=== PATIENT | male | born 1990 ===

== ENCOUNTER 2016-07-17 07:11 | Inpatient (IN) ==
[2016-07-17] MEDS ORDERED: ONDANSETRON 4 MG/2 ML VIAL IV STA (07:40)
[2016-07-17] MEDS ORDERED: SODIUM CHLORIDE 0.9% 1,000 ML IV STA (07:40)
[2016-07-17] MEDS ORDERED: HYDROmorphone 2 MG/1 ML VIAL IV STA (07:40)
[2016-07-17] MEDS ORDERED: ONDANSETRON 4 MG/2 ML VIAL ONE ×2 (07:46→10:47)
[2016-07-17] MEDS ORDERED: HYDROmorphone 2 MG/1 ML VIAL ONE (07:47)
--- NOTE | 2016-07-17 08:00 | XRay Report ---
XR chest 1V portable Indication: Abdominal pain Comparison: None available Findings: The heart and mediastinum are normal in size and configuration. The pulmonary vascularity is normal in caliber. No lung infiltrates, effusions, pneumothorax or other abnormality is demonstrated. Impression: Normal chest x-ray PROCEDURE INTERPRETED AT [facility] DEPARTMENT OF RADIOLOGY Final Report Signed by: Dr. Bartolo Taylor
--- NOTE | 2016-07-17 08:19 | Emergency Department Note ---
Gloria Machuca Gwan, am scribing for, and in the presence of, Randolph Tabor MD 07:51 . Sharona Machuca James D, MD, personally performed the services described in this documentation, ascribed by Jin Castro in my presence, and it is both accurate and complete . Arrival - Arrival Stated Complaint: abdominal pain Mode of Arrival: Stretcher Limitations: No Limitations Source: Patient, Old Records Reviewed, RN Notes Reviewed - History of Present Illness HPI Narrative: Pt is a 26 y/o male, with a hx of Pancreatitis, who presents to the ED via EMS from [facility] with a c/o N/V with an onset this morning. Patient stated that upon onset, he has had constant vomiting. He describes his pain as burning and that it radiates to his back. Patient denies a SHX of ETOH use or any hx of DM. During exam, pt stated that is is in pain now and that he last vomited right before exam. No other problems/complaints reported in ED. Onset (ago): hour(s) Consistency: constant Severity: moderate Allergies/Adverse Reactions: Allergies Allergy/AdvReac Type Severity Reaction Status Date / Time No Known Allergies Allergy Verified 07/17/16 07:27 Home Medications: Home Medications Medication Instructions Recorded Confirmed Type No Known Home Medications [No 07/17/16 07/17/16 History Known Home Medications] Review of System - Review of System 12 point system: reviewed and no additional remarkable complaints except as stated - Review of System Constitutional: Absent: chills, fever Eyes: Absent: discharge, pain Head/Ears/Nose/Throat: Absent: earache Cardiovascular: Absent: chest pain Gastrointestinal: Present: as per HPI, abdominal pain Genitourinary male: Absent: dysuria Musculoskeletal: Absent: arm pain, back pain, leg pain, neck pain Skin: Absent: rash, lesions Neurological: Absent: headache, weakness Exam Physical Examination: GENERAL: This is a morbidly obese [place] male in no apparent distress. VITAL SIGNS: HEENT: Head is normocephalic and atraumatic. Pupils are equally round and reactive to light. Extraocular movement are intact. Oropharynx is benign with moist mucous membranes. Exophthalmos present. NECK: Neck is soft and supple without tenderness. There are no masses. There is no lymphadenopathy. LUNGS: Lungs are clear to auscultation bilaterally. Chest rises symmetrically. There is no chest wall tenderness. CV: Heart is regular rate and rhythm without murmurs, rubs, or gallops. ABDOMEN: Abdomen is soft, tender to palpation epigastric area. There are no abnormal masses palpated. There is no organomegaly. Bowel sounds are present and active. SKIN: Skin is warm and dry. No rash. EXTREMITIES: Patient has full range of motion without tenderness. There is no pedal edema. NEUROLOGIC: Awake, alert, and oriented x4. Cranial nerves II through XII are grossly intact. There are no motorsensory deficits. PSYCHIATRIC: Normal affect. Normal mood. tender epigastric exofthoumas morbid obesity Vital Signs: Vital Signs Temperature 97.5 F L 07/17/16 07:11 Pulse Rate 96 H 07/17/16 07:11 Respiratory Rate 20 07/17/16 07:11 Blood Pressure 148/89 07/17/16 07:11 O2 Sat by Pulse Oximetry 98 07/17/16 07:11 Course Course Narrative: Discussed with hospitalist pt will be admitted to their services. Time now is 0745. Results - Labs Lab Results: I have reviewed the patients labs - EKG EKG results: interpreted by ERMD - Impressions EKG: Sinus tachycardia with a rate of 107, nonspecific ST-T wave changes, left axis deviation. Disposition Clinical Impression: Pancreatitis Case discussed with: patient Disposition: Still a Patient Time of Disposition: 08:19
[2016-07-17] MEDS ORDERED: GLUCAGON 1 MG VIAL IM PRN (08:31)
[2016-07-17] MEDS ORDERED: ONDANSETRON 4 MG/2 ML VIAL IV PRN (08:31)
[2016-07-17] MEDS ORDERED: DEXTROSE 50% 25 GM/50 ML VIAL IV PRN (08:31)
--- NOTE | 2016-07-17 08:43 | Ultrasound Report ---
Abdominal ultrasound Indication: Abdominal Pain Findings: The liver is normal in size and echogenicity. The gallbladder is fluid-filled without evidence of stones or sludge. The gallbladder wall thickness is 1.8 mm. The common bile duct measures 5.2 mm. The visualized portion of the pancreas appear within normal limits The kidneys normal in size and echogenicity without hydronephrosis or other abnormality. The right renal length is 7.8 cm. Left renal length is 9.7 cm. Spleen, aorta and IVC appear within normal limits. No free fluid or free air seen. Impression: No evidence of abnormality demonstrated. Ultrasound images stored and captured. PROCEDURE INTERPRETED AT [facility] DEPARTMENT OF RADIOLOGY Final Report Signed by: Dr. Bartolo Taylor
--- NOTE | 2016-07-17 08:46 | CT Report ---
CT abdomen pelvis Indication: Pancreatitis Comparison: None available Technique: Axial CT imaging of the abdomen and pelvis is performed without contrast. Findings: Cardiac and lung bases are within normal limits CT abdomen: There is stranding seen diffusely around the pancreas. No focal pancreatic lesion is identified. A multiple calculi are seen within the gallbladder. Small amount of fluid is present in the right paracolic gutter. The liver spleen and adrenal glands are normal in size and density. No evidence of focal lesion is demonstrated in these solid organs. Kidneys are normal in size and density. No evidence of hydronephrosis or nephrolithiasis is seen. The bowel caliber is normal and no wall thickening or adjacent inflammatory change is seen. No evidence of free fluid or free air is present. CT pelvis: The bowel and bladder appear within normal limits. The pelvic organs show no evidence of abnormality Impression: Findings of pancreatitis as described above. This CT exam was performed using one or more the following dose reduction techniques: Automated exposure control, adjustment of the MA and/or KV according to patient size, or use of iterative reconstruction technique. PROCEDURE INTERPRETED AT [facility] DEPARTMENT OF RADIOLOGY Final Report Signed by: Dr. Bartolo Taylor
--- NOTE | 2016-07-17 08:48 | EKG Report ---
Stationary ECG Study [facility] ER Test Date: 07/17/2016 8:39:50 AM Pat Name: ADELINA CANALES Department: Room: Gender: M Mortgage Consultant: ANN : 1990 Requested by: Randolph Griffin Order Number: [id number] Reading MD: SIMON MITCHELL Intervals [place] Rate: 107 P: 7 AK: 132 QRS: -36 QRSD: 105 T: 21 QT: 330 QTc: 393 Interpretive Statements SINUS TACHYCARDIA LEFT AXIS DEVIATION DELAYED ANTERIOR R WAVE PROGRESSION INDICATING POSSIBLE ANTERIOR MYOCARDIAL INFARCTION BUT MAY BE A NORMAL VARIANT Electronically Signed On 07-22-16 11:07:20 CDT by SIMON MITCHELL [email or web address]
--- NOTE | 2016-07-17 08:48 | Hospitalist History & Physical ---
Assessment and Plan - Time spent with patient Time spent with patient: Greater than 30 minutes (1) Elevated LFTs Status: Acute Assessment and plan: 26-year-old obese male transferred from [facility] with further evaluation for pancreatitis. Patient has elevated LFTs, elevated lipase and elevated white count. Patient is afebrile vital signs are stable at this time. He does have hypertension and blood sugars over 200 so most likely has undiagnosed diabetes and hypertension as well. Patient's ultrasound and CT scan are pending at this time. Patient does not drink alcohol. Case has been discussed with Dr. Juárez the ED physician and Dr. Lowery. Further recommendations to follow. Pancreatitis with elevated LFTs--ultrasound and CT scan are pending. This most likely represents cholelithiasis and possible choledocholithiasis pending ultrasound and CT results. We will go ahead and get GI consulted for possible ERCP. Patient has been made n.p.o. and IV fluids started at 200 mils per hour. We will control his pain and nausea And monitor his symptoms. If the pancreatitis is from cholelithiasis we will also consult surgery. Will await results of CT and ultrasound. Undiagnosed diabetes--we will go ahead and get sliding scale insulin and blood glucoses before meals and at bedtime. Checking a hemoglobin A1c as well. Undiagnosed hypertension--we will monitor his blood pressures at this time. Lopressor as needed has been ordered. Hypertension could possibly be from pain so we will control his pain as well. Graves' disease with exophthalmos--checking thyroid function tests. (2) Diabetes Status: Acute (3) Hypertension Status: Acute (4) Graves' disease with exophthalmos Status: Acute (5) Pancreatitis Status: Acute History of Present Illness Chief complaint: Abdominal pain History of present illness: Mr. Casanova is a 26 year old obese male w no reported medical history transferred by ambulance from [facility] for further evaluation of pancreatitis. pt states he was in his normal state of health until late last night when he thought he had to have a BM. he had acute onset of severe abdominal pain w nausea and constant vomiting. he states the pain felt like something was "trying to claw its way out of me" and then it started radiating through to his back. pt denies headache, blurred vision, dysphagia, chest pain, sob, diarrhea or constipation, or LE edema. pt denies alcohol or smoking. pt's records from [facility] state pt has dx of Grave's disease but pt states he didnt know. his BP are elevated and his BS are over 200. pts PSH includes debridement from spider bite and eye surgery when he was younger. records from [facility] show elevated LFTs [place] [address]. pt is afeb and VSS other than hypertension. US and CTA/P have been ordered in ED and are pending. pts case was discussed w dr juárez the ED physician and dr lowery the admitting hospitalist and it was agreed pt needs to be admitted for further evaluation and treatment. Home Medications Medication Instructions Recorded Confirmed Type No Known Home Medications [No 07/17/16 07/17/16 History Known Home Medications] Allergies Allergy/AdvReac Type Severity Reaction Status Date / Time No Known Allergies Allergy Verified 07/17/16 07:27 Medical,Surgical,& Family Hx - Medical History Cardio: History of: Hypertension Endocrine: History of: Diabetes Mellitus (IDDM), Thyroid Disorder (Graves disease) Respiratory: History of: Obstructive Sleep Apnea - Surgical History HEENT Surgeries: Surgical HX of: Eye Surgery Orthopedic Surgeries: Surgical HX of;: Orthopedic Surgery - Family History Family History: Reports;: Family Heart Disease - Social History Smoking Status: Never smoker Frequency of Alcohol Use: None Type of Drug Use: None Marital Status: Single Functional capacity: independent ambulation Review of systems: Complete 10 system review of systems was obtained and pertinent negatives and positives are per HPI Exam - Constitutional Vitals: Period Temp Pulse Resp BP Sys/Chong Pulse Ox Last 24 Hr 97.5 F 96 20 148/89 98 Exam: Constitutional System: No distress. No tremulousness. Head: Normocephalic, atraumatic. Ears, Nose and Throat System: No evidence of Otitis or Mastoiditis. No epistaxis or discharge Eyes System: Pupils equal, round, and reactive. Extraocular muscles intact. Exophthalmus with bloodshot sclera Neck: Supple, without adenopathy, No jugular venous distention. No thyromegaly, neck mass, or prior surgery apparent. Respiratory System: Chest clear to auscultation. Cardiovascular System: Heart with regular rate and rhythm. No murmur. GI System: Abdomen soft, obese tender to palpation in both upper quadrants and epigastrium. Normo active bowel sounds present. No peritoneal signs Musculoskeletal System: limbs with mild pedal edema. Full distal pulses. Patient has excoriations on bilateral lower legs Neurological System: No discernable sensory deficit. No aphasia Psychiatric System: Conversation is rational Results - Labs Lab Results: I have reviewed the past 24 hour labs (Lipase greater than 12,000, elevated LFTs, white blood cell count 16.9 from [facility] records) - Diagnostic Findings Procedure: Chest x-ray: report reviewed by me (normal), CT Abdomen and Pelvis: pending, Ultrasound: pending
[2016-07-17] MEDS ORDERED: METOPROLOL TARTRATE 5 MG/5 ML VIAL IV PRN (08:53)
[2016-07-17 08:55] LABS: Basophils % 0.1 % (0.0-0.8); Eosinophils % 0.1 % (0.00-10.9); Hematocrit 45.8 VOL% (42.0-52.0); Hemoglobin 15.5 GM/DL (14.0-18.0); Immature Granulocytes % 0.4 %; Immature Granulocytes Absolute 0.07 #; Lymphocytes # 0.9 10*3/uL (1.4-4.0); Lymphocytes % 5.3 % (21.2-54.2); Mean Corpuscular HGB Conc 33.8 GM/DL (32-36); Mean Corpuscular Hemoglobin 29 PG (27-34); Mean Corpuscular Volume 85.8 FL (87-102); Mean Platelet Volume 10.6 FL (9.6-12.0); Monocytes # 0.6 10*3/uL (0.11-0.8); Monocytes % 3.6 % (1.7-12.7); Neutrophils # 15.8 10*3/uL (1.4-7.4); Neutrophils % 90.5 % (38.7-73.9); Platelet Count 254 T/CUMM (130-400); Red Blood Count 5.34 MC/CUMM (3.8-5.5); Red Cell Distribution Width 12.7 % (9.3-17.3); White Blood Count 17.4 T/CUMM (4-12)
[2016-07-17 09:04] LABS: PT Patient Result 10.3 SECS
[2016-07-17 09:32] LABS: Albumin 3.2 G/DL (3.4-5.0); Bilirubin,Total 0.6 MG/DL (0.2-1.0); Calcium 8.5 MG/DL (8.5-10.1); Osmolality,Calculated 286.1 MOS/KG (273-304); Potassium 3.9 MMOL/L (3.5-5.1); Total Protein 7.3 G/DL (6.4-8.3)
[2016-07-17 09:40] LABS: Free T4 (Free Thyroxine) 1.47 NG/DL (0.76-1.46); Thyroid Stimulating Hormone < 0.005 uIU/ml (0.358-3.74); Triglycerides 209 MG/DL (2-150)
[2016-07-17] MEDS: ONDANSETRON 4 MG/2 ML VIAL IV PRN ×2 (10:49→22:11)
[2016-07-17] MEDS: SODIUM CHLORIDE 0.9% 1,000 ML IV SCH ×3 (11:44→18:03)
[2016-07-17] MEDS: metroNIDAZOLE INJ 500 MG in PREMIX 1 EACH IV SCH ×2 (12:10→17:22)
[2016-07-17] MEDS: PANTOPRAZOLE 40 MG VIAL IV SCH (12:10)
--- NOTE | 2016-07-17 13:34 | Gastrointestinal Consult Note ---
<Jailene Damico - Last Filed: 07/17/16 13:30> Assessment and Plan (1) Pancreatitis Status: Acute Assessment and plan: 07/17-Sudden onset of nausea and vomiting with abdominal pain radiating to back. CT and US findings noted as below. Lipase 9380, elevated transaminases. Continue NPO with ice chips only. Continue to monitor at this time and recheck LFTS and lipase tomorrow. Will reevaluate tomorrow. Plan and addendum to follow by Dr Houston. Current Visit: Yes History of Present Illness Chief complaint: Abdominal pain, elevated LFTs History of present illness: Mr. Casanova is a 26 year old male who was transferred from [facility] following onset of abdominal pain. Patient states that he was in his usual state of health until yesterday when he had a sudden onset of severe abdominal pain in his upper abdomen that was associated with intractable nausea and vomiting. Patient states the pain was severe in nature and radiated through to his back. He states he has never had pain like this in the past. Patient denies any coffee-ground or hematemesis with the vomiting. Denies any fever or chills. He denies any history of smoking or alcohol use now or in the past. He does have a history of Graves' disease according to his records from [facility] but he is not aware of this per patient. Denies family history of gallbladder disease. He was found prior to arrival to have a lipase greater than 12,000 and elevated LFTs. He was transferred to our facility for further evaluation. On admission he had a CT scan which showed diffuse stranding around the pancreas with no lesion identified as well as multiple calculi in the gallbladder and paracolic gutter fluid the liver and spleen are unremarkable without focal lesions. Abdominal ultrasound showed fluid-filled gallbladder without evidence of stones or sludge with the common bile duct at 5.2 mm. He was found to have leukocytosis with WBCs at 17,000. Lipase 9380, AST 215, ALT 320, Alk phos 210. Home Medications Medication Instructions Recorded Confirmed Type No Known Home Medications [No 07/17/16 07/17/16 History Known Home Medications] Allergies Allergy/AdvReac Type Severity Reaction Status Date / Time No Known Allergies Allergy Verified 07/17/16 07:27 Medical,Surgical,& Family Hx - Medical History Cardio: History of: Hypertension Endocrine: History of: Diabetes Mellitus (IDDM), Thyroid Disorder (Graves disease) Respiratory: History of: Obstructive Sleep Apnea - Surgical History HEENT Surgeries: Surgical HX of: Eye Surgery Orthopedic Surgeries: Surgical HX of;: Orthopedic Surgery - Family History Family History: Reports;: Family Heart Disease - Social History Smoking Status: Never smoker Frequency of Alcohol Use: None Type of Drug Use: None 12 point system: reviewed and no additional remarkable complaints except as stated - Constitutional Constitutional: Present: as per HPI - EENT Eyes: Present: as per HPI Ears: Present: as per HPI Nose, mouth and throat: Present: as per HPI - Cardiovascular Cardiovascular: Present: as per HPI - Respiratory Respiratory: Present: as per HPI - Gastrointestinal Gastrointestinal: Present: as per HPI, abdominal pain, nausea, vomiting - Genitourinary Genitourinary: Present: as per HPI - Musculoskeletal Musculoskeletal: Present: as per HPI - Neurological Neurological: Present: as per HPI - Psychiatric Psychiatric: Present: as per HPI - Endocrine Endocrine: Present: as per HPI - Hematologic/Lymphatic Hematologic/Lymphatic: Present: as per HPI Exam - Constitutional Vitals: Period Temp Pulse Resp BP Sys/Chong Pulse Ox Last 24 Hr 98.8 F-98.8 F 102-111 18-20 138-169/93-102 95-97 General appearance: no acute distress, morbidly obese - Head Head exam: Present: normal inspection, normocephalic - Eye Eye exam: Present: other (lids and conjunctiva unremarakble). Absent: scleral icterus - ENT ENT exam: Present: normal exam, normal oropharynx - Neck Neck exam: Present: normal inspection, meningismus - Respiratory Respiratory exam: Present: clear to auscultation bilaterally. Absent: rales, rhonchi, wheezes - Cardiovascular Cardiovascular exam: Present: regular rate and rhythm. Absent: diastolic murmur , JVD, systolic murmur - GI/Abdominal GI/Abdominal exam: Present: normal bowel sounds, tenderness, soft. Absent: ascites, distended, mass, organomegaly - Extremities Exam Extremities exam: Present: normal inspection, full ROM - Back Exam Back exam: Present: normal inspection - Neurological Exam Neurological exam: Present: alert, oriented X3 - Psychiatric Psychiatric exam: Present: normal affect, normal mood - Skin Skin exam: Present: normal color, warm, dry Results - Labs CBC & BMP: 07/17/16 08:46 07/17/16 08:46 Lab Results: I have reviewed the past 24 hour labs - Diagnostic Findings Procedure: CT Abdomen and Pelvis: report reviewed by me, Ultrasound: report reviewed by me <Shailesh Houston - Last Filed: 07/17/16 18:12> History of Present Illness History of present illness: Mr. Casanova is a 26 year old male Exam - Constitutional Vitals: Period Temp Pulse Resp BP Sys/Chong Pulse Ox Last 24 Hr 97.9 F-98.8 F 102-111 18-20 134-169/83-102 95-97 Results - Labs CBC & BMP: 07/17/16 08:46 07/17/16 08:46
[2016-07-17] MEDS: HYDROmorphone 2 MG/1 ML VIAL IV PRN ×2 (13:38→22:10)
[2016-07-17] MEDS: PIPERACILLIN/TAZOBACTAM 3,375 MG in SODIUM CHLORIDE 0.9% 100 ML IV SCH ×2 (13:38→21:33)
[2016-07-17] MEDS ORDERED: POLYVINYL ALCOHOL 1.4% OPH SOLN 15 ML BOTTLE BOTH EYES PRN (15:28)
[2016-07-17] MEDS: INSULIN LISPRO 100 UNIT/ML SUBCUT SCH ×2 (15:52→21:26)
[2016-07-17] MEDS ORDERED: INSULIN LISPRO 100 UNIT/ML SUBCUT SCH (17:00)
[2016-07-17] MEDS: MINERAL OIL/PETROLATUM OPH OINT 3.5 GM TUBE LEFT EYE SCH (21:32)
[2016-07-18] MEDS: metroNIDAZOLE INJ 500 MG in PREMIX 1 EACH IV SCH ×5 (01:56→23:57)
[2016-07-18] MEDS: SODIUM CHLORIDE 0.9% 1,000 ML IV SCH ×3 (01:56→12:05)
[2016-07-18] MEDS: HYDROmorphone 2 MG/1 ML VIAL IV PRN ×5 (02:16→21:10)
[2016-07-18] MEDS: ONDANSETRON 4 MG/2 ML VIAL IV PRN (02:16)
[2016-07-18] MEDS: PIPERACILLIN/TAZOBACTAM 3,375 MG in SODIUM CHLORIDE 0.9% 100 ML IV SCH ×3 (04:30→21:10)
[2016-07-18 06:01] LABS: Basophils % 0.1 % (0.0-0.8); Eosinophils # 0.2 10*3/uL (0.0-0.87); Eosinophils % 1.1 % (0.00-10.9); Hemoglobin 14.4 GM/DL (14.0-18.0); Immature Granulocytes % 0.4 %; Immature Granulocytes Absolute 0.05 #; Lymphocytes # 1.9 10*3/uL (1.4-4.0); Lymphocytes % 13.9 % (21.2-54.2); Mean Corpuscular HGB Conc 32.7 GM/DL (32-36); Mean Corpuscular Hemoglobin 29 PG (27-34); Mean Corpuscular Volume 88.7 FL (87-102); Mean Platelet Volume 11.1 FL (9.6-12.0); Monocytes # 0.8 10*3/uL (0.11-0.8); Monocytes % 6.1 % (1.7-12.7); Neutrophils # 10.7 10*3/uL (1.4-7.4); Neutrophils % 78.4 % (38.7-73.9); Platelet Count 235 T/CUMM (130-400); Red Blood Count 4.96 MC/CUMM (3.8-5.5); Red Cell Distribution Width 13.2 % (9.3-17.3); White Blood Count 13.6 T/CUMM (4-12)
[2016-07-18 06:20] LABS: Albumin 2.7 G/DL (3.4-5.0); Bilirubin,Total 1.3 MG/DL (0.2-1.0); Calcium 8.4 MG/DL (8.5-10.1); Osmolality,Calculated 290.6 MOS/KG (273-304); Potassium 3.7 MMOL/L (3.5-5.1); Total Protein 6.2 G/DL (6.4-8.3)
[2016-07-18] MEDS: INSULIN LISPRO 100 UNIT/ML SUBCUT SCH ×4 (08:26→21:20)
--- NOTE | 2016-07-18 09:46 | Gastrointestinal Progress Note ---
<Jailene Damico - Last Filed: 07/18/16 09:41> Assessment and Plan (1) Pancreatitis Status: Acute Assessment and plan: 07/18-Pain improved at present time, no further N/V. Lipase trending down at 2469 , transaminases trending down with bilirubin at 1.3. Continue to monitor lipase and plan for tentative ERCO tomorrow if pt continues to improve. Plan and addendum to follow by Dr Houston. 07/17-Sudden onset of nausea and vomiting with abdominal pain radiating to back. CT and US findings noted as below. Lipase 9380, elevated transaminases. Continue NPO with ice chips only. Continue to monitor at this time and recheck LFTS and lipase tomorrow. Will reevaluate tomorrow. Plan and addendum to follow by Dr Houston. Current Visit: Yes Gastroenterology - PN: Subj Interval history: CC: Pancreatitis Pt is awake and alert lying in bed. He states his pain is improved at this time. Denies any nausea or vomiting. Abdomen is soft, nontender to palpation. Lipase is trending down at 2469. Afebrile. LFTs are trending down as well with slight elevation in bilirubin at 1.3. ROS: Denies SOB or chest pain Exam (Progress Note) - Constitutional Vitals: Period Temp Pulse Resp BP Sys/Chong Pulse Ox Last 24 Hr 96.1 F-98.8 F 76-111 16-20 134-167/66-101 91-97 General appearance: no acute distress, morbidly obese - Head Head exam: Present: normal inspection, normocephalic - Eye Eye exam: Present: other (lids and conjunctiva unremarkable). Absent: scleral icterus - ENT ENT exam: Present: normal exam, normal oropharynx - Neck Neck exam: Present: normal inspection - Respiratory Respiratory exam: Present: clear to auscultation bilaterally. Absent: rales, rhonchi, wheezes - Cardiovascular Cardiovascular exam: Present: regular rate and rhythm. Absent: diastolic murmur , JVD, systolic murmur - GI/Abdominal GI/Abdominal exam: Present: normal bowel sounds, soft. Absent: ascites, distended, mass, organomegaly, tenderness - Extremities Exam Extremities exam: Present: normal inspection - Back Exam Back exam: Present: normal inspection - Neurological Exam Neurological exam: Present: alert, oriented X3 - Psychiatric Psychiatric exam: Present: normal affect, normal mood - Skin Skin exam: Present: normal color, warm, dry Results - Labs CBC & BMP: 07/18/16 04:42 07/18/16 04:42 Lab Results: I have reviewed the past 24 hour labs <Shailesh Houston - Last Filed: 07/18/16 18:39> Exam (Progress Note) - Constitutional Vitals: Period Temp Pulse Resp BP Sys/Chong Pulse Ox Last 24 Hr 96.1 F-98.9 F 76-111 16-20 133-172/66-88 90-96 Results - Labs CBC & BMP: 07/18/16 04:42 07/18/16 04:42
[2016-07-18] MEDS: PANTOPRAZOLE 40 MG VIAL IV SCH (10:27)
--- NOTE | 2016-07-18 11:43 | Hospitalist Progress Note ---
Assessment and Plan - Time spent with patient Time spent with patient: Greater than 30 minutes (1) Elevated LFTs Status: Acute Assessment and plan: 26-year-old obese male transferred from [facility] with further evaluation for pancreatitis. Patient has elevated LFTs, elevated lipase and elevated white count. Patient is afebrile vital signs are stable at this time. He does have hypertension and blood sugars over 200 so most likely has undiagnosed diabetes and hypertension as well. Patient's ultrasound and CT scan are pending at this time. Patient does not drink alcohol. Case has been discussed with Dr. Tabor the ED physician and Dr. Mendoza. Further recommendations to follow. Pancreatitis with elevated LFTs--ultrasound and CT scan are pending. This most likely represents cholelithiasis and possible choledocholithiasis pending ultrasound and CT results. We will go ahead and get GI consulted for possible ERCP. Patient has been made n.p.o. and IV fluids started at 200 mils per hour. We will control his pain and nausea And monitor his symptoms. If the pancreatitis is from cholelithiasis we will also consult surgery. Will await results of CT and ultrasound. Undiagnosed diabetes--we will go ahead and get sliding scale insulin and blood glucoses before meals and at bedtime. Checking a hemoglobin A1c as well. Undiagnosed hypertension--we will monitor his blood pressures at this time. Lopressor as needed has been ordered. Hypertension could possibly be from pain so we will control his pain as well. Graves' disease with exophthalmos--checking thyroid function tests. 07/18/2016 26-year-old obese male with acute gallstone pancreatitis. He is afebrile and tacky in the low 100s. His WBCs are down to 13.6 on Zosyn and Flagyl. His lipase is come down to 2469 which is much improved but his T bili is mildly elevated at 1.3. Patient is tentatively scheduled for ERCP by Dr. Houston in the morning. We will go ahead and consult Dr. Moser from surgery for cholecystectomy following ERCP. This is all been discussed with Dr. Mendoza. Further recommendations to follow Pancreatitis with elevated LFTs--lipase down significantly and LFTs stable. Gallbladder ultrasound was normal but a CT scan showed pancreatitis with multiple calculi in the gallbladder. Patient does have elevated cholesterol and this could contribute to this but feel the most likely reason is from gallstones. Continue his IV fluids at 200. With his hypernatremia will switch the IV fluids to half-normal saline. Continue Zosyn and Flagyl. Diabetes--patient's blood sugars last 24 hours are running from 72-167. Patient 's hemoglobin A1c was normal so this elevation in blood sugars most likely from his illness. We will continue to monitor him with sliding scale insulin. He will need follow-up with his primary care physician as well. Hypertension-patient's blood pressures are running borderline high. He does have Lopressor ordered as needed. We will continue to watch this and see as his pancreatitis and pain resolved if his blood pressures come down. If not he will be started on a mild blood pressure medicine and followed up with his primary care physician. Graves' disease with exophthalmos--patient does have hyper thyroidism. Will discuss this with Dr. Mendoza as far as further studies and/or medicines. Hypernatremia--change IV fluids to half-normal saline. Hypercholesterolemia--patient does have elevated cholesterol at 203 and triglycerides at 209. This could be contributing to his pancreatitis but usually levels need to be significantly higher for this. Will discuss with Dr. Mendoza about starting patient on Lipitor etc. Current Visit: Yes (2) Diabetes Status: Acute Current Visit: Yes (3) Hypertension Status: Acute Current Visit: Yes (4) Graves' disease with exophthalmos Status: Acute Current Visit: Yes (5) Pancreatitis Status: Acute Current Visit: Yes Hospitalist: Subjective Interval history: Patient is lying in bed comfortably and he feels much better today. He has no complaints of chest pain or shortness of breath. He is ambulating around in the room some and he is urinating well. He is slab off mill tender in the upper quadrants of the abdomen but it is improved from yesterday. Exam - Constitutional Vitals: Period Temp Pulse Resp BP Sys/Chong Pulse Ox Last 24 Hr 96.1 F-98.8 F 76-111 16-20 134-144/66-93 91-96 Exam: 26-year-old obese male, no acute distress, alert and oriented Chest clear CV regular rate and rhythm Abdomen obese, tender to palpation in right upper quadrant left upper quadrant and epigastric region. Extremities with dryness and excoriations to bilateral lower legs. No edema Results - Labs CBC & BMP: 04/20/17 04:42 07/18/16 04:42 Lab Results: I have reviewed the past 24 hour labs - Diagnostic Findings Procedure: CT Abdomen and Pelvis: report reviewed by me (Pancreatitis with multiple calculi seen in the gallbladder), Ultrasound: report reviewed by me ( No abnormality but difficulty obtaining due to body habitus)
[2016-07-18 12:20] LABS: Risk Ratio 4.5; VLDL CHOLESTEROL 36.4 MG/DL
--- NOTE | 2016-07-18 12:33 | General Surgery Consult Note ---
Assessment and Plan (1) Pancreatitis due to biliary obstruction Status: Acute Assessment and plan: Patient is clinically improving under current therapy - agree with current measures and to continue. Gastroenterology plans ERCP tomorrow if clinical course continues to improve. Patient will likely require cholecystectomy to follow. Will follow along and proceed when appropriately indicated. Current Visit: Yes Qualifiers: Chronicity: acute History of Present Illness Chief complaint: Gallstone pancreatitis History of present illness: Mr. Casanova is a 26 year old obese, male with apparent hypertension, hyperlipidemia, suspected diabetes mellitus and hypothyroidism currently admitted with biliary pancreatitis. Overall, he has improved both clinically and on labs over the past 24 hours of treatment. Patient presented with pancreatitis associated with cholelithiasis currently on Flagyl and Zosyn. He is receiving IV fluids, appropriate pain mgmt, and is n.p.o. He reports overall his pain is significantly improved in the right upper quadrant with resolution of N/V. He has no history of similar symptoms. Home Medications Medication Instructions Recorded Confirmed Type No Known Home Medications [No 07/17/16 07/17/16 History Known Home Medications] Allergies Allergy/AdvReac Type Severity Reaction Status Date / Time No Known Allergies Allergy Verified 07/17/16 07:27 Medical,Surgical,& Family Hx - Medical History Cardio: History of: Hypertension Endocrine: History of: Diabetes Mellitus (IDDM), Thyroid Disorder (Graves disease) Respiratory: History of: Obstructive Sleep Apnea - Surgical History HEENT Surgeries: Surgical HX of: Eye Surgery Orthopedic Surgeries: Surgical HX of;: Orthopedic Surgery (left arm fracture repair) - Family History Family History: Reports;: Family Heart Disease - Social History Smoking Status: Never smoker Frequency of Alcohol Use: None Type of Drug Use: None - Constitutional Constitutional: Absent: chills, fever(s) - Cardiovascular Cardiovascular: Absent: chest pain at rest, orthopnea, palpitations - Respiratory Respiratory: Absent: cough, dyspnea on exertion, wheezing - Gastrointestinal Gastrointestinal: Present: as per HPI - Genitourinary Genitourinary: Absent: dysuria, hematuria - Musculoskeletal Musculoskeletal: Absent: arthralgias Hematologic/Lymphatic: Absent: easy bleeding, easy bruising Exam - Constitutional Vitals: Period Temp Pulse Resp BP Sys/Chong Pulse Ox Last 24 Hr 96.1 F-97.9 F 76-111 16-20 134-144/66-88 91-96 General appearance: no acute distress, morbidly obese - Eye Eye exam: Present: other (exopthalmos with left eye injection). Absent: scleral icterus - Neck Neck exam: Present: trachea midline - Respiratory Respiratory exam: Present: clear to auscultation bilaterally - Cardiovascular Cardiovascular exam: Present: tachycardia (slight; regular rhythm) - GI/Abdominal GI/Abdominal exam: Present: hypoactive bowel sounds, tenderness (RUQ), soft. Absent: distended, organomegaly (large abdomen inhibits exam.) - Extremities Exam Extremities exam: Absent: calf tenderness, edema - Neurological Exam Neurological exam: Present: alert, oriented X3 - Skin Skin exam: Present: warm. Absent: cyanosis, pallor Results - Labs CBC & BMP: 07/18/16 04:42 07/18/16 04:42 Labs: Lipase, liver function, and leukocytosis have improved. Hypernatremia noted today increased to 146. Bilirubin increased from 0.6 1.3 today. - Diagnostic Findings Procedure: Chest x-ray: image reviewed by me, report reviewed by me (No acute abnormality appreciated), CT Abdomen and Pelvis: image reviewed by me, report reviewed by me (Cholethiasis with pericholic fluid; no GB distension noted; pancreatic stranding noted indicating pancreatitis), Ultrasound: report reviewed by me (No abnormality)
[2016-07-18] MEDS: SODIUM CHLORIDE 0.45% 1,000 ML IV SCH ×2 (12:56→21:19)
[2016-07-18] MEDS: ATORVASTATIN 20 MG TABLET PO SCH (14:15)
[2016-07-18] MEDS: ENALAPRIL 2.5 MG/2 ML VIAL IV SCH ×2 (16:20→21:11)
[2016-07-18] MEDS: MINERAL OIL/PETROLATUM OPH OINT 3.5 GM TUBE LEFT EYE SCH (21:18)
[2016-07-19] MEDS: HYDROmorphone 2 MG/1 ML VIAL IV PRN ×4 (01:28→21:40)
[2016-07-19 03:40] LABS: Basophils % 0.2 % (0.0-0.8); Eosinophils # 0.6 10*3/uL (0.0-0.87); Eosinophils % 4.3 % (0.00-10.9); Hematocrit 41.8 VOL% (42.0-52.0); Hemoglobin 13.3 GM/DL (14.0-18.0); Immature Granulocytes % 0.5 %; Immature Granulocytes Absolute 0.08 #; Lymphocytes # 1.8 10*3/uL (1.4-4.0); Lymphocytes % 12.5 % (21.2-54.2); Mean Corpuscular HGB Conc 31.8 GM/DL (32-36); Mean Corpuscular Hemoglobin 29 PG (27-34); Mean Corpuscular Volume 92.1 FL (87-102); Mean Platelet Volume 10.9 FL (9.6-12.0); Monocytes # 1.2 10*3/uL (0.11-0.8); Monocytes % 7.9 % (1.7-12.7); Neutrophils % 74.6 % (38.7-73.9); Platelet Count 213 T/CUMM (130-400); Red Blood Count 4.54 MC/CUMM (3.8-5.5); Red Cell Distribution Width 13.2 % (9.3-17.3); White Blood Count 14.7 T/CUMM (4-12)
[2016-07-19 04:27] LABS: INR 1.1; PT Patient Result 11.7 SECS
[2016-07-19] MEDS: ENALAPRIL 2.5 MG/2 ML VIAL IV SCH ×4 (04:49→21:40)
[2016-07-19] MEDS: PIPERACILLIN/TAZOBACTAM 3,375 MG in SODIUM CHLORIDE 0.9% 100 ML IV SCH ×3 (05:01→17:02)
[2016-07-19] MEDS: SODIUM CHLORIDE 0.45% 1,000 ML IV SCH ×2 (08:23→17:02)
[2016-07-19 08:56] LABS: Albumin 2.2 G/DL (3.4-5.0); Bilirubin,Total 0.8 MG/DL (0.2-1.0); Calcium 7.9 MG/DL (8.5-10.1); Osmolality,Calculated 287.6 MOS/KG (273-304); Potassium 3.8 MMOL/L (3.5-5.1); Total Protein 5.7 G/DL (6.4-8.3)
--- NOTE | 2016-07-19 10:52 | General Surgery Progress Note ---
Assessment and Plan (1) Pancreatitis due to biliary obstruction Status: Acute Assessment and plan: This patient has biliary pancreatitis. He is on the schedule for ERCP today. I will recommend an interval cholecystectomy once his common duct is cleared. Current Visit: Yes Qualifiers: Chronicity: acute Subjective Patient reports: Present: no new complaints, feels better, still having pain, pain is less, afebrile. Absent: nausea, vomiting Exam - Constitutional Vitals: Period Temp Pulse Resp BP Sys/Chong Pulse Ox Last 24 Hr 96.9 F-99.4 F 106-115 18-21 110-172/54-81 90-96 General appearance: no acute distress, morbidly obese - Head Head exam: Present: normal inspection, normocephalic - Eye Eye exam: Present: EOMI. Absent: scleral icterus Pupils: Present: JHONNY - ENT ENT exam: Present: normal exam Mouth exam: Present: normal external inspection, normal voice - Neck Neck exam: Present: normal inspection, trachea midline - Respiratory Respiratory exam: Present: clear to auscultation bilaterally. Absent: accessory muscle use, chest wall tenderness - Cardiovascular Cardiovascular exam: Present: RRR. Absent: systolic murmur, tachycardia - GI/Abdominal GI/Abdominal exam: Present: normal bowel sounds, tenderness (Patient has some midepigastric tenderness), soft. Absent: guarding - Extremities Exam Extremities exam: Present: normal inspection, normal capillary refill - Back Exam Back exam: Present: normal inspection - Neurological Exam Neurological exam: Present: alert, oriented X3 Speech: Present: normal - Skin Skin exam: Present: normal color, warm Results - Labs CBC & BMP: 07/19/16 02:32 07/19/16 08:12
[2016-07-19] MEDS ORDERED: GLUCAGON 1 MG VIAL ONE (12:55)
[2016-07-19] MEDS: INSULIN LISPRO 100 UNIT/ML SUBCUT SCH ×4 (13:57→21:59)
[2016-07-19] MEDS: ATORVASTATIN 20 MG TABLET PO SCH (13:58)
[2016-07-19] MEDS ORDERED: ONDANSETRON 4 MG/2 ML VIAL ONE (14:42)
[2016-07-19] MEDS ORDERED: fentaNYL 100 MCG/2 ML VIAL ONE (14:42)
[2016-07-19] MEDS ORDERED: DESFLURANE 1 UNIT/15 MINUTE INH ONE (14:42)
[2016-07-19] MEDS ORDERED: PROPOFOL 200 MG/20 ML VIAL IV ONE ×2 (14:42→14:43)
[2016-07-19] MEDS ORDERED: SUCCINYLCHOLINE 200 MG/10 ML VIAL ONE (14:42)
[2016-07-19] MEDS ORDERED: ROCURONIUM 100 MG/10 ML VIAL IV ONE (14:42)
[2016-07-19] MEDS ORDERED: MIDAZOLAM 2 MG/2 ML VIAL ONE (14:42)
--- NOTE | 2016-07-19 14:47 | Fluoroscopy Report ---
ERCP Indication: Elevated liver enzymes, pain and gallstones. Findings: Fluoroscopic imaging was provided during ERCP procedure. The contrast injection was performed with 10 cc Omnipaque 240. The caliber of the duct appears within normal limits on the images. Following sweep was performed but only sludge was expressed without calculi. Fluoroscopy time 2 minutes Impression: ERCP as described above. PROCEDURE INTERPRETED AT [facility] DEPARTMENT OF RADIOLOGY Final Report Signed by: Dr. Bartolo Taylor
[2016-07-19] MEDS: metroNIDAZOLE INJ 500 MG in PREMIX 1 EACH IV SCH ×3 (15:35→21:40)
[2016-07-19] MEDS: PANTOPRAZOLE 40 MG VIAL IV SCH (15:47)
--- NOTE | 2016-07-19 15:58 | Hospitalist Progress Note ---
Assessment and Plan (1) Pancreatitis due to biliary obstruction Status: Acute Assessment and plan: 1)gallstone pancreatitis- ERCP today. anticipate cholecystectomy soon. DR Moser and DR Houston consulting. on Zosyn and flagyl 2)new "pre"diabetes- diabetes educators consulted 3)hyperlipiedemia- on lipitor now. 4)morbid obesity- encourage weight loss and lifestyle changes. Current Visit: Yes Qualifiers: Chronicity: acute (2) Graves' disease with exophthalmos Status: Acute Current Visit: Yes (3) Morbid obesity Status: Acute Current Visit: Yes (4) Hyperlipidemia Status: Acute Current Visit: Yes Hospitalist: Subjective Interval history: Mr Casanova is feeling better today. He will have ERCP. He is starting to feel a little hungry. Exam - Constitutional Vitals: Period Temp Pulse Resp BP Sys/Chong Pulse Ox Last 24 Hr 96.9 F-99.4 F 102-134 18-29 110-150/54-85 90-97 General appearance: no acute distress, morbidly obese - Eye Eye exam: Present: EOMI. Absent: scleral icterus - Respiratory Respiratory exam: Present: clear to auscultation bilaterally - Cardiovascular Cardiovascular exam: Present: regular rate and rhythm - GI/Abdominal GI/Abdominal exam: Present: normal bowel sounds, soft. Absent: tenderness - Extremities Exam Extremities exam: Absent: edema - Neurological Exam Neurological exam: Present: alert, oriented X3 - Skin Skin exam: Present: warm, dry Results - Labs CBC & BMP: 07/19/16 02:32 07/19/16 08:12 Lab Results: I have reviewed the past 24 hour labs
--- NOTE | 2016-07-19 16:00 | History and Physical Update ---
History and Physical Update - Physical Exam Mental Status: alert and oriented Heart: regular rate and rhythm Lung: clear to auscultation Abdomen: within normal limits Vitals: within normal limits
--- NOTE | 2016-07-19 16:02 | Operative Note ---
Date of procedure: 07/19/16 Pre-op diagnosis: Gallstone pancreatitis Procedure: Endoscopic retrograde cholangiopancreatography with sphincterotomy and balloon stone extraction in the operating room. 26-year-old obese male with gallstone pancreatitis now for ERCP due to his size patient is being done under general anesthesia in the operating room. Informed symptoms obtained the patient. He was sedated with general anesthesia and monitored by anesthesia. Patient placed in the prone position the Olympus duodenal scope inserted lower cavity bands 200 normal-appearing esophagus stomach pylorus into the duodenum. The ampulla appears normal. The ampulla was cannulated with findings of a minimally dilated common bile duct common hepatic duct cystic duct is patent multiple stones are noted in the gallbladder. There is some refractive debris noted in the biliary tree on cholangiogram and it was elected to proceed with sphincterotomy. An 8 mm sphincterotomy was performed without difficulty balloon catheter was inserted 3 in the shiv hepatis and pulled in the duodenum with removal of stone debris. No residual stone debris was noted. We are unable to bring a 10 mm balloon into the duodenum without difficulty. Favors a cannulated pancreatic duct were unsuccessful. The procedure terminated placed our procedure well his discharge recovery in good condition. Postop diagnosis: 1. Choledocholithiasis now status post ERCP sphincterotomy likely source of his gallstone pancreatitis. 2. Cholelithiasis proceed with cholecystectomy per Dr. Cid Anesthesia: MAC Surgeon / Physician: Shailesh Houston Estimated blood loss: none Specimens: none sent Condition: stable Disposition: post procedure unit Results - Labs CBC & BMP: 07/19/16 02:32 07/19/16 08:12 Discharge Plan - Discharge Medications No Action No Known Home Medications [No Known Home Medications] - Follow Up or Referral - Forms/Instructions
[2016-07-19] MEDS: MINERAL OIL/PETROLATUM OPH OINT 3.5 GM TUBE LEFT EYE SCH (21:41)
--- NOTE | 2016-07-19 22:12 | Anesthesia Post-Op ---
Anesthesia Post OP - Post Ansesthetic Evaluation Patient seen in post op: Yes Resp: within normal limits CV: within normal limits Mental: within normal limits Temp: within normal limits [id number]: within normal limits Nausea and Vomiting: within normal limits Pain: within normal limits
[2016-07-20] MEDS: SODIUM CHLORIDE 0.45% 1,000 ML IV SCH ×3 (03:14→14:20)
[2016-07-20] MEDS: metroNIDAZOLE INJ 500 MG in PREMIX 1 EACH IV SCH ×4 (03:48→22:04)
[2016-07-20] MEDS: ENALAPRIL 2.5 MG/2 ML VIAL IV SCH ×4 (04:28→22:49)
[2016-07-20] MEDS: PIPERACILLIN/TAZOBACTAM 3,375 MG in SODIUM CHLORIDE 0.9% 100 ML IV SCH ×2 (05:43→17:10)
[2016-07-20 06:26] LABS: Albumin 2.1 G/DL (3.4-5.0); Bilirubin,Total 0.8 MG/DL (0.2-1.0); Calcium 7.5 MG/DL (8.5-10.1); Osmolality,Calculated 281.1 MOS/KG (273-304); Potassium 3.3 MMOL/L (3.5-5.1); Total Protein 5.5 G/DL (6.4-8.3)
[2016-07-20] MEDS ORDERED: POTASSIUM CHLORIDE 20 MEQ TABLET PO ONE (08:51)
--- NOTE | 2016-07-20 08:51 | Hospitalist Progress Note ---
Assessment and Plan (1) Pancreatitis Status: Acute Assessment and plan: Impression: 1. Gallstone pancreatitis Plan: Cholecystectomy is scheduled for Friday morning. For now, we will continue current care. He will continue antibiotics. He is tolerating regular diet. Other home medications have been continued. This note was completed using [employer] voice recognition software. There may be retinal surgeon errors as a result. Current Visit: Yes Qualifiers: Chronicity: acute Pancreatitis type: biliary Acute pancreatitis complication: no infection or necrosis Qualified Code(s): K85.10 - Biliary acute pancreatitis without necrosis or infection Hospitalist: Subjective Interval history: Follow-up gallstone pancreatitis. The patient underwent ERCP with sphincterotomy and stone removal yesterday. He says that he feels better. He reports minimal abdominal pain. He cleaned his tray this morning for breakfast. He says that cholecystectomy is scheduled for 07/22. Exam - Constitutional Vitals: Period Temp Pulse Resp BP Sys/Chong Pulse Ox Last 24 Hr 98 F-99.5 F 75-134 16-29 110-150/56-85 90-97 Blood pressure is normal. Heart is regular with distant tones and no murmur. He is moving air fairly well. I could not examine his abdomen adequately due to body habitus. Results - Labs CBC & BMP: 07/19/16 02:32 07/20/16 05:00 Lab Results: I have reviewed the past 24 hour labs
[2016-07-20] MEDS: ATORVASTATIN 20 MG TABLET PO SCH (09:51)
[2016-07-20] MEDS: INSULIN LISPRO 100 UNIT/ML SUBCUT SCH ×4 (09:52→21:46)
[2016-07-20] MEDS: PANTOPRAZOLE 40 MG VIAL IV SCH (09:52)
--- NOTE | 2016-07-20 10:08 | Gastrointestinal Progress Note ---
Assessment and Plan - Time spent with patient Time spent with patient: Greater than 30 minutes (1) Pancreatitis due to biliary obstruction Status: Acute Current Visit: Yes Qualifiers: Chronicity: acute (2) Choledocholithiasis Status: Acute Current Visit: Yes (3) Other specified counseling Status: Acute Current Visit: Yes Exam (Progress Note) - Constitutional Vitals: Period Temp Pulse Resp BP Sys/Chong Pulse Ox Last 24 Hr 98 F-99.5 F 75-134 16-29 110-150/56-85 90-97 Results - Labs CBC & BMP: 07/19/16 02:32 07/20/16 05:00 Note Addendum: PLEASE NOTE -- automatic citation of patient information is unavoidable in this electronic note. I have made a reasonable effort to review the information cited , but it is not a part of my evaluation, impression, or recommendation unless specifically discussed in the dictated text that follows. As well, voice recognition software was used in the creation of this clinical note. Reasonable effort was made to identify and correct gross errors. Despite proofreading, errors in die casting machine operator may be present, including nonsense verbiage at times. If you encounter such an error, please contact me at for discussion and correction. -- Sebastián Chief complaint: abdominal pain Subjective: the patient is a 26-year-old male seen for follow-up of choledocholithiasis. The patient underwent ERCP with sphincterotomy and removal of stones yesterday with Dr. Houston. The patient tolerated the procedure well. The patient reports feeling well this morning with no abdominal pain, nausea, or vomiting. He was able to eat this morning without difficulty. He is expecting surgical intervention on Friday. Medications: Lipitor, Vasotec, Dilaudid, insulin, Lopressor, Flagyl, Zofran, Protonix, Zosyn, 1/2NS infusion Review of Symptoms: 12 point review of symptoms was negative except as noted above Physical examination: Vital Signs: Current vital signs reviewed. General Appearance: morbidly obese but otherwise well up. Sitting in bedside chair. No apparent distress. Head: Normocephalic. Eyes: no scleral icterus. No scleral injection. No conjunctival pallor. Oral Cavity: Odor of breath was normal. No drooling was observed. Lips showed no abnormalities. Lungs: Respiration rhythm and depth was normal. Cardiovascular: Heart rate and rhythm were normal. Abdomen: abdomen was protuberant due to obesity but not distended abdominal auscultation revealed no abnormalities. Ascites was not discovered. Abdominal palpation revealed no tenderness and no hepatosplenomegaly. Musculoskeletal System: musculoskeletal system was grossly normal. Neurological: level of consciousness was normal. Speech was normal. No coordination/cerebellum abnormalities were noted. Skin: Gen. appearance was normal. Color and pigmentation were normal. No skin lesions were appreciated. Laboratory: ALT 59, AST 24, bilirubin 0.8, alkaline phosphatase 89 Radiology: reviewed with no pertinent changes noted. Impressions: 1. Pancreatitis, biliary -- the patient underwent ERCP with stone removal yesterday and tolerated this procedure without difficulty. He is feeling much better this morning with no abdominal pain, nausea, or vomiting. I recommend continued monitoring with advancing diet as tolerated. 2. Choledocholithiasis -- the common bile duct was cleared via ERCP. Cholelithiasis remains and the patient will have cholecystectomy at the discretion of his general surgeon. 3. Other specified counseling --patient seen for greater than 30 minutes. Greater than 50% of this time was spent counseling regarding differential diagnosis, likely diagnosis,, diagnostic and therapeutic options, risks, benefits, and alternatives to procedures and medications, informed consent, and plan of care generally. Patient has expressed understanding and wishes to proceed. Recommendations: -- continued hydration and analgesia -- advance diet as tolerated -- cholecystectomy at the discretion of general surgery -- we will continue to follow with you
[2016-07-20] MEDS: MINERAL OIL/PETROLATUM OPH OINT 3.5 GM TUBE LEFT EYE SCH (22:05)
[2016-07-21] MEDS: PIPERACILLIN/TAZOBACTAM 3,375 MG in SODIUM CHLORIDE 0.9% 100 ML IV SCH ×3 (00:20→16:33)
[2016-07-21] MEDS: SODIUM CHLORIDE 0.45% 1,000 ML IV SCH ×5 (03:24→23:54)
[2016-07-21] MEDS: metroNIDAZOLE INJ 500 MG in PREMIX 1 EACH IV SCH ×4 (04:26→20:35)
[2016-07-21] MEDS: ENALAPRIL 2.5 MG/2 ML VIAL IV SCH ×4 (04:32→20:37)
[2016-07-21 07:06] LABS: Calcium 7.6 MG/DL (8.5-10.1); Potassium 3.5 MMOL/L (3.5-5.1)
--- NOTE | 2016-07-21 08:36 | Hospitalist Progress Note ---
Assessment and Plan (1) Pancreatitis Status: Acute Assessment and plan: Impression: 1. Gallstone pancreatitis Plan: Cholecystectomy in the morning. He understands the need for no oral intake after midnight. Home medications have been continued. This note was completed using [employer] voice recognition software. There may be senior java ui developer errors as a result. Current Visit: Yes Qualifiers: Chronicity: acute Pancreatitis type: biliary Acute pancreatitis complication: no infection or necrosis Qualified Code(s): K85.10 - Biliary acute pancreatitis without necrosis or infection Hospitalist: Subjective Interval history: Follow-up gallstone pancreatitis. The patient says that he is experiencing some early satiety. He has not had any vomiting. He is eating breakfast when I entered the room. He reports continued improvement in the abdominal pain. Exam - Constitutional Vitals: Period Temp Pulse Resp BP Sys/Chong Pulse Ox Last 24 Hr 97.4 F-98.9 F 80-97 17-20 132-143/63-83 93-99 Heart is regular with no murmur or gallop. Lungs are clear with no rales or wheezes. Abdomen is soft with good bowel sounds. Results - Labs CBC & BMP: 07/19/16 02:32 07/21/16 06:19
[2016-07-21] MEDS: PANTOPRAZOLE 40 MG VIAL IV SCH (09:42)
[2016-07-21] MEDS: ATORVASTATIN 20 MG TABLET PO SCH (09:50)
[2016-07-21] MEDS: INSULIN LISPRO 100 UNIT/ML SUBCUT SCH ×4 (12:42→20:34)
[2016-07-21] MEDS: MINERAL OIL/PETROLATUM OPH OINT 3.5 GM TUBE LEFT EYE SCH (20:35)
--- NOTE | 2016-07-21 22:21 | General Surgery Progress Note ---
Assessment and Plan (1) Pancreatitis due to biliary obstruction Status: Acute Assessment and plan: Plan for laparoscopic cholecystectomy tomorrow. I have discussed the risks, benefits, and alternatives of the operation, and the expected outcomes have been reviewed. We will proceed with the operation tomorrow. In particular, I discussed the risk of bleeding, infection, hernias of the abdominal wall, injury to the intestines or liver, pancreatitis, dropped or retained stones in the abdomen, bile leak, and bile duct injury. The patient's questions have been answered. Current Visit: Yes Qualifiers: Chronicity: acute Subjective Patient reports: Present: no new complaints, feels better, still having pain, pain is less, tolerating a regular diet, afebrile. Absent: nausea, vomiting Exam - Constitutional Vitals: Period Temp Pulse Resp BP Sys/Chong Pulse Ox Last 24 Hr 97.4 F-98.9 F 85-97 17-22 130-143/71-86 93-97 General appearance: no acute distress, morbidly obese - Head Head exam: Present: normal inspection, normocephalic - Eye Eye exam: Present: EOMI. Absent: scleral icterus Pupils: Present: JHONNY - ENT ENT exam: Present: normal exam Mouth exam: Present: normal external inspection, normal voice - Neck Neck exam: Present: normal inspection, trachea midline - Respiratory Respiratory exam: Present: clear to auscultation bilaterally. Absent: accessory muscle use, chest wall tenderness - Cardiovascular Cardiovascular exam: Present: RRR. Absent: systolic murmur, tachycardia - GI/Abdominal GI/Abdominal exam: Present: normal bowel sounds, tenderness (Mild right upper quadrant tenderness without rebound or guarding), soft. Absent: distended, guarding, rebound - Extremities Exam Extremities exam: Present: normal inspection, normal capillary refill - Back Exam Back exam: Present: normal inspection - Neurological Exam Neurological exam: Present: alert, oriented X3 Speech: Present: normal - Skin Skin exam: Present: normal color, warm Results - Labs CBC & BMP: 07/19/16 02:32 07/21/16 06:19
[2016-07-22] MEDS: PIPERACILLIN/TAZOBACTAM 3,375 MG in SODIUM CHLORIDE 0.9% 100 ML IV SCH ×2 (00:04→13:34)
[2016-07-22] MEDS: metroNIDAZOLE INJ 500 MG in PREMIX 1 EACH IV SCH ×2 (03:40→13:34)
[2016-07-22] MEDS: ENALAPRIL 2.5 MG/2 ML VIAL IV SCH ×2 (03:41→13:33)
[2016-07-22] MEDS ORDERED: TISSUE ADHESIVE 1 EACH APPLICATOR TOP ONE (06:16)
[2016-07-22] MEDS ORDERED: LIDOCAINE 2%/EPI 20 ML VIAL ONE (06:16)
[2016-07-22] MEDS: SODIUM CHLORIDE 0.45% 1,000 ML IV SCH ×2 (06:50→13:33)
[2016-07-22] MEDS ORDERED: ROCURONIUM 100 MG/10 ML VIAL IV ONE (07:00)
[2016-07-22] MEDS ORDERED: NEOSTIGMINE 10 MG/10 ML VIAL ONE (07:00)
[2016-07-22] MEDS ORDERED: DEXAMETHASONE 10 MG/1 ML VIAL ONE (07:00)
[2016-07-22] MEDS ORDERED: SUCCINYLCHOLINE 200 MG/10 ML VIAL ONE (07:00)
[2016-07-22] MEDS ORDERED: METOPROLOL TARTRATE 5 MG/5 ML VIAL IV ONE ×2 (07:00→07:32)
[2016-07-22] MEDS ORDERED: GLYCOPYRROLATE 0.4 MG/2 ML VIAL ONE (07:00)
[2016-07-22] MEDS ORDERED: LIDOCAINE 2% 5 ML VIAL ONE (07:00)
[2016-07-22] MEDS ORDERED: PROPOFOL 200 MG/20 ML VIAL IV ONE (07:00)
[2016-07-22] MEDS ORDERED: ONDANSETRON 4 MG/2 ML VIAL ONE (07:00)
[2016-07-22] MEDS ORDERED: LACTATED RINGERS 1,000 ML IV SCH (07:00)
[2016-07-22] MEDS: INSULIN LISPRO 100 UNIT/ML SUBCUT SCH ×4 (07:45→21:33)
[2016-07-22] MEDS: ATORVASTATIN 20 MG TABLET PO SCH (09:05)
[2016-07-22] MEDS ORDERED: ONDANSETRON 4 MG/2 ML VIAL IV PRN (10:00)
[2016-07-22] MEDS ORDERED: HYDROmorphone 2 MG/1 ML VIAL IV PRN (10:00)
--- NOTE | 2016-07-22 10:03 | Anesthesia Post-Op ---
Anesthesia Post OP - Post Ansesthetic Evaluation Patient seen in post op: Yes Resp: within normal limits CV: within normal limits Mental: within normal limits Temp: within normal limits [id number]: within normal limits Nausea and Vomiting: within normal limits Pain: within normal limits
[2016-07-22] MEDS ORDERED: HYDROmorphone 2 MG/1 ML VIAL ONE (10:05)
[2016-07-22] MEDS ORDERED: DESFLURANE 1 UNIT/15 MINUTE INH ONE (10:05)
[2016-07-22] MEDS ORDERED: ACETAMINOPHEN 1,000 MG/100 ML VIAL IV ONE (10:06)
[2016-07-22] MEDS ORDERED: KETAMINE 500 MG/10 ML VIAL ONE (10:06)
[2016-07-22] MEDS ORDERED: LACTATED RINGERS 1,000 ML IV ONE (10:06)
[2016-07-22] MEDS ORDERED: fentaNYL 100 MCG/2 ML VIAL ONE (10:06)
--- NOTE | 2016-07-22 10:06 | Fluoroscopy Report ---
FL cholangiogram in surgery Indication: Abdominal pain. Cholecystectomy. Comparison: None. Technique: Injection of the cystic duct using intravenous contrast was performed intraoperatively. Multiple fluoroscopic images were then captured and stored. Total fluoroscopy time was 1 minute 22 seconds. Findings: Normal filling of the extrahepatic bile duct and retrograde filling of the intrahepatic bile ducts appears within normal limits. There is no evidence of biliary duct dilatation, choledocholithiasis, or abnormal junction of the biliary and pancreatic systems. Filling of the small bowel appears within normal limits. Impression: 1. No evidence of choledocholithiasis. 07/22/2016 10:03 AM PROCEDURE INTERPRETED AT [facility] DEPARTMENT OF RADIOLOGY Final Report Signed by: Dr. Sachin Bermeo
--- NOTE | 2016-07-22 10:59 | Operative Note ---
Date of procedure: 07/22/16 Pre-op diagnosis: Biliary pancreatitis with acute cholecystitis Post-op diagnosis: same Procedure: Preoperative diagnosis Biliary pancreatitis with acute cholecystitis Postoperative diagnosis Same Procedures performed Laparoscopic cholecystectomy with intraoperative cholangiogram 22 modifier Findings Acute and chronic cholecystitis was seen. The dissection was extremely difficult and the common bile duct was drawn up into an area of inflammation in the cystic plate that made this dissection very tedious and difficult and took away more than twice usual length of time. The operation was able to be done safely. The critical view of safety was obtained prior to placing clips on the cystic duct and cystic artery. A #10 KATIANA drain was placed in the gallbladder fossa Complications None apparent Specimen Gallbladder Anesthesia GETA Blood loss 5 mL Indications This patient was admitted with biliary pancreatitis and underwent ERCP with successful sphincterotomy and removal of debris from the bile duct. I recommended a laparoscopic cholecystectomy to prevent recurrence and treat his cholecystitis. The risks, benefits, and alternatives of the operation were discussed with the patient in detail, and the expected outcomes were reviewed. In particular, the risk of bowel injury, liver injury, bile duct leak and bile duct injury, as well as pancreatitis and retained or drop stones were discussed in detail. All the patient's questions were answered. She like to proceed with the operation. Description of procedure The patient was taken to the operating room and transferred to the operating table in the supine position. Pressure points were padded and SCDs were placed to bilateral lower extremities. General endotracheal anesthesia was administered. The abdomen was prepped chlorhexidine and draped sterilely. Preoperative antibiotics were administered, a timeout was performed. The abdomen was entered in a supraumbilical location of the Veress needle. The skin incision was made in the supraumbilical location with a 11 blade scalpel after local anesthetic was administered. Umbilical stalk was grasped with a penetrating towel clip. A Veress needle was used to enter the peritoneal cavity confirmed by double click technique. Aspiration was negative. Saline drop test confirmed intraperitoneal location. The abdomen was insufflated to 15 mmHg with an initial insufflation pressure of 6 mmHg. The Veress needle was removed and a 5 mm trocar was placed blindly. The towel clip was removed. Diagnostic laparoscopy was performed. There is no evidence of Veress needle or trocar injury. The patient was placed in reverse Trendelenburg and left side rolled down position. Under direct visualization, and after local anesthetic was administered, an 11 mm midepigastric trocar and 2 right subcostal 5 mm trochars were placed. There was some blood on the omentum but there is no evidence of bowel injury from the trocar placement once all the trochars were placed in this area was inspected. There was acute and chronic inflammation of the gallbladder and omentum was plastered to it. This was taken down with sharp and blunt dissection and the colon was visualized as well as the duodenum. An additional 5 mm trocar was required to assist with retraction using a fan retractor on the duodenum. The gallbladder was grasped at the fundus and infundibulum. The cystic plate peritoneum was dissected into the critical view of safety was obtained. This dissection was extremely difficult and tedious because the common bile duct was drawn up towards the cystic duct which was very shortened. A cholangiogram was performed in order to better define the anatomy and this showed normal flow into the duodenum with no filling defects and it confirmed the suspected anatomy in the OR that we were indeed identifying the cystic duct. The intrahepatic biliary radicles were identified. The cystic duct and cystic artery were clipped twice initially and once laterally and divided laparoscopically with scissors between clips. Gallbladder was removed from the gallbladder fossa using hook electrocautery. There was some spillage of stones and all the stones appear to be removed with thorough inspection of the gallbladder fossa. These stones were removed with graspers and with suction. The gallbladder was placed in a Endo Catch retrieval bag through the 11 mm trocar and removed through the trocar with a small amount of fascial extension. The gallbladder fossa was suction irrigated until the effluent was clear. A 0 Vicryl [id number] suture was placed at the midepigastric trocar site with no residual fascial defect. The CO2 was released from the abdomen and the trochars were removed. The skin incisions were closed with 4-0 Monocryl subcuticular suture and sterile skin glue. The patient was awakened from anesthesia and transferred to recovery. Postoperative plan Advance diet as tolerated Pain control Implants: #10 KATIANA drain Anesthesia: JUAN PABLO, local Surgeon / Physician: Odell Moser Estimated blood loss: minimal Specimens: other (gallbladder) Condition: stable Disposition: PACU Results - Labs CBC & BMP: 07/19/16 02:32 07/21/16 06:19 Discharge Plan - Discharge Medications No Action No Known Home Medications [No Known Home Medications] - Follow Up or Referral Follow Up: Odell Moser MD [Physician] - 2 Weeks - Forms/Instructions
--- NOTE | 2016-07-22 11:18 | Gastrointestinal Progress Note ---
<Jailene Damico - Last Filed: 07/22/16 11:16> Assessment and Plan (1) Pancreatitis Status: Acute Assessment and plan: 07/22-post laparoscopic cholecystectomy with normal intraoperative cholangiogram. LFTs and lipase trending down to normal range over weekend. Plan an addendum to follow by Dr. Houston. 07/18-Pain improved at present time, no further N/V. Lipase trending down at 2469 , transaminases trending down with bilirubin at 1.3. Continue to monitor lipase and plan for tentative ERCO tomorrow if pt continues to improve. Plan and addendum to follow by Dr Houston. 07/17-Sudden onset of nausea and vomiting with abdominal pain radiating to back. CT and US findings noted as below. Lipase 9380, elevated transaminases. Continue NPO with ice chips only. Continue to monitor at this time and recheck LFTS and lipase tomorrow. Will reevaluate tomorrow. Plan and addendum to follow by Dr Houston. Current Visit: Yes Qualifiers: Chronicity: acute Pancreatitis type: biliary Acute pancreatitis complication: no infection or necrosis Qualified Code(s): K85.10 - Biliary acute pancreatitis without necrosis or infection Gastroenterology - PN: Subj Interval history: CC: Choledocholithiasis Patient is seen, post recovery from a laparoscopic cholecystectomy this morning. He had an intraoperative cholangiogram done with normal findings noted. LFTs are noted to have trended down to normal range over the weekend. Lipase down to 281 as well. Abdomen is soft, tender to palpation. ROS: Denies shortness of breath or chest pain Exam (Progress Note) - Constitutional Vitals: Period Temp Pulse Resp BP Sys/Chong Pulse Ox Last 24 Hr 97.5 F-98.9 F 73-104 18-22 118-140/68-88 93-100 General appearance: no acute distress, over weight - Head Head exam: Present: normal inspection, normocephalic - Eye Eye exam: Present: other (Lids and conjunctive on). Absent: scleral icterus - ENT ENT exam: Present: normal exam, normal oropharynx - Neck Neck exam: Present: normal inspection - Respiratory Respiratory exam: Present: clear to auscultation bilaterally. Absent: rales, rhonchi, wheezes - Cardiovascular Cardiovascular exam: Present: regular rate and rhythm. Absent: diastolic murmur , JVD, systolic murmur - GI/Abdominal GI/Abdominal exam: Present: normal bowel sounds, tenderness, soft. Absent: ascites, distended, mass, organomegaly - Extremities Exam Extremities exam: Present: normal inspection, full ROM - Back Exam Back exam: Present: normal inspection - Neurological Exam Neurological exam: Present: alert, oriented X3 - Psychiatric Psychiatric exam: Present: normal affect, normal mood - Skin Skin exam: Present: normal color, warm, dry Results - Labs CBC & BMP: 07/19/16 02:32 07/21/16 06:19 Lab Results: I have reviewed the past 24 hour labs Specialty Discharge - Follow Up or Referrals Follow up with: Odell Moser MD [Physician] - 2 Weeks <Shailesh Houston - Last Filed: 07/22/16 20:45> Exam (Progress Note) - Constitutional Vitals: Period Temp Pulse Resp BP Sys/Chong Pulse Ox Last 24 Hr 97.8 F-98.6 F 73-104 18-20 118-140/68-88 93-100 Results - Labs CBC & BMP: 07/19/16 02:32 07/21/16 06:19
[2016-07-22] MEDS: LACTATED RINGERS 1,000 ML IV SCH (13:25)
--- NOTE | 2016-07-22 14:22 | Hospitalist Progress Note ---
Assessment and Plan (1) Pancreatitis due to biliary obstruction Status: Acute Assessment and plan: s/p ercp with sphincterotomy for choledocholithiasis Current Visit: Yes Qualifiers: Chronicity: acute (2) Choledocholithiasis Status: Acute Assessment and plan: Status post lap oh should be okay for discharge in a.m. Current Visit: Yes (3) Elevated LFTs Status: Acute Assessment and plan: Due to choledocholithiasis and pancreatitis, resolving without intervention Current Visit: Yes (4) Diabetes Status: Acute Assessment and plan: Hemoglobin A1c is normal no evidence of diabetes diabetes found Current Visit: Yes (5) Hypertension Status: Acute Assessment and plan: Blood pressure currently good without intervention hold off on any medications at this time. Current Visit: Yes (6) Graves' disease with exophthalmos Status: Acute Assessment and plan: solumedrol and ptu Current Visit: Yes (7) Morbid obesity Status: Acute Assessment and plan: needs to lose weight Current Visit: Yes Hospitalist: Subjective Interval history: Patient had a lap oh today. He is still very lethargic from the anesthesia. Mother is at bedside. Patient does not snore nor does he complain of headaches. Exam - Constitutional Vitals: Period Temp Pulse Resp BP Sys/Chong Pulse Ox Last 24 Hr 97.7 F-98.9 F 73-104 18-22 118-140/68-88 93-100 Exam: Heart Rate-[RRR] Lungs-[CTAB] GI-[+bs soft, NT] Ext-[no edema] Neuro [lethargic unable to evaluate psych [unable to evaluate due to anesthesia General [no acute distress] Results - Labs CBC & BMP: 07/19/16 02:32 07/21/16 06:19 Lab Results: I have reviewed the past 24 hour labs Specialty Discharge - Follow Up or Referrals Follow up with: Odell Moser MD [Physician] - 2 Weeks
[2016-07-22] MEDS ORDERED: POTASSIUM CHLORIDE 20 MEQ TABLET PO ONE (14:24)
[2016-07-22] MEDS: PROPYLTHIOURACIL 50 MG TABLET PO SCH ×2 (15:55→21:34)
[2016-07-22] MEDS: PANTOPRAZOLE 40 MG VIAL IV SCH (16:07)
[2016-07-22] MEDS: methylPREDNISolone SOD SUC 125 MG/2 ML VIAL IV SCH (16:11)
[2016-07-22] MEDS: MINERAL OIL/PETROLATUM OPH OINT 3.5 GM TUBE LEFT EYE SCH (21:34)
[2016-07-23] MEDS: LACTATED RINGERS 1,000 ML IV SCH ×3 (00:12→16:56)
[2016-07-23] MEDS: methylPREDNISolone SOD SUC 125 MG/2 ML VIAL IV SCH ×2 (00:17→06:07)
[2016-07-23 05:24] LABS: Basophils % 0.1 % (0.0-0.8); Hematocrit 37.6 VOL% (42.0-52.0); Hemoglobin 12.6 GM/DL (14.0-18.0); Immature Granulocytes % 0.4 %; Immature Granulocytes Absolute 0.04 #; Lymphocytes # 0.8 10*3/uL (1.4-4.0); Lymphocytes % 8.4 % (21.2-54.2); Mean Corpuscular HGB Conc 33.5 GM/DL (32-36); Mean Corpuscular Hemoglobin 30 PG (27-34); Mean Corpuscular Volume 88.1 FL (87-102); Mean Platelet Volume 11.1 FL (9.6-12.0); Monocytes # 0.2 10*3/uL (0.11-0.8); Monocytes % 1.6 % (1.7-12.7); Neutrophils # 8.7 10*3/uL (1.4-7.4); Neutrophils % 89.5 % (38.7-73.9); Platelet Count 257 T/CUMM (130-400); Red Blood Count 4.27 MC/CUMM (3.8-5.5); Red Cell Distribution Width 12.1 % (9.3-17.3); White Blood Count 9.7 T/CUMM (4-12)
[2016-07-23 05:57] LABS: Albumin 2.3 G/DL (3.4-5.0); Bilirubin,Total 0.6 MG/DL (0.2-1.0); Calcium 8.1 MG/DL (8.5-10.1); Osmolality,Calculated 281.3 MOS/KG (273-304); Potassium 4.2 MMOL/L (3.5-5.1)
[2016-07-23] MEDS: INSULIN LISPRO 100 UNIT/ML SUBCUT SCH ×4 (08:40→20:22)
[2016-07-23] MEDS: ATORVASTATIN 20 MG TABLET PO SCH (08:44)
[2016-07-23] MEDS: PANTOPRAZOLE 40 MG VIAL IV SCH (08:44)
[2016-07-23] MEDS: PROPYLTHIOURACIL 50 MG TABLET PO SCH ×3 (08:44→20:29)
--- NOTE | 2016-07-23 09:41 | Discharge Summary ---
<Matty Greer - Last Filed: 07/23/16 09:33> Hospital Course - Hospital Course Hospital Course: This patient is a 26-year-old [place] male who presented to the [facility] ED on with acute onset of abdominal pain, random hyperglycemia and hypertension. He was found to have elevated LFTs and lipase levels subsequently diagnosed with pancreatitis due to biliary obstruction. GI was consulted and Dr. Houston performed an ERCP on 07/19/2016 with a successful sphincterotomy for choledocholithiasis but only expressed sludge without any calculi. LFTs and lipase levels trended downward status post sphincterotomy. General surgery was consulted and Dr. Moser performed a laparoscopic cholecystectomy on 07/22/2016. Patient continued to improve status post cholecystectomy. Hospital course was otherwise relatively uncomplicated. Hemoglobin A1c is normal with no evidence of diabetes. Blood pressure continues to be normal without intervention. Patient does have Graves' disease with exophthalmos has been treated with Solu-Medrol and propylthiouracil. Patient has reached maximum benefit from hospitalization stable for discharge at this time. Appropriate discharge instructions to follow per discharge orders and addendum from Dr. Reaves. - Time spent with patient Time with patient DS: Greater than 30 minutes Specialty Discharge - Follow Up or Referrals Follow up with: Odell Moser MD [Physician] - 08/07/16 1:30 pm Discharge Plan - Discharge Data Disposition: Disch To Home/Self Care - Discharge Medications New HYDROcodone/ACETAMIN 7.5-325 [[place] 7.5-325] 1 tablet PO Q4H PRN #30 tablet PRN Reason: Pain Moderate (4-7) Mineral Oil/Petrolat Oph Oint [Refresh PM Oph Oint] 1 applic LEFT EYE BEDTIME #1 applic Atorvastatin [Lipitor] 20 mg PO DAILY #30 tablet Continue Propylthiouracil 100 mg PO TID #180 tablet - Follow Up or Referral Follow Up: Odell Moser MD [Physician] - 08/07/16 1:30 pm Button Station Worker, Dr carola Olivares [Other] - 2 Weeks - Forms/Instructions Exam - Constitutional Vitals: Period Temp Pulse Resp BP Sys/Chong Pulse Ox Last 24 Hr 97.0 F-97.8 F 81-94 18-20 115-177/66-85 91-96 Discharge Results Labs on day of discharge: Labs from last 24 hours 07/24/16 07/24/16 07/24/16 08:07 04:45 04:45 WBC 12.7 H D RBC 4.15 Hgb 12.0 L Hct 36.4 L MCV 87.7 MCH 29 MCHC 33.0 RDW 12.4 Plt Count 280 MPV 11.1 Neut % (Auto) 67.7 Lymph % (Auto) 23.1 [place] % (Auto) 8.3 Eos % (Auto) 0.2 Baso % (Auto) 0.1 Neut # (Auto) 8.6 H Lymph # (Auto) 2.9 [place] # (Auto) 1.1 H Eos # (Auto) 0.0 Baso # (Auto) 0.0 Immature Gran % 0.6 Nucleated RBC % 0.0 Immature Gran # 0.07 Nucleated RBCs # 0.00 Sodium 143 Potassium 4.2 Chloride 106 Carbon Dioxide 29 Anion Gap 12.2 BUN 13 Creatinine 0.60 L GFR Calculation 241 BUN/Creatinine Ratio 21.00 H Glucose 107 H POC Glucose 81 Calculated Osmolality 284.0 Calcium 7.8 L Total Bilirubin < 0.39 AST 46 H ALT 53 Alkaline Phosphatase 69 Total Protein 5.4 L Albumin 2.3 L Globulin 3.1 Albumin/Globulin Ratio 0.7 L 07/23/16 07/23/16 07/23/16 18:48 16:15 11:53 WBC RBC Hgb Hct MCV MCH MCHC RDW Plt Count MPV Neut % (Auto) Lymph % (Auto) [place] % (Auto) Eos % (Auto) Baso % (Auto) Neut # (Auto) Lymph # (Auto) [place] # (Auto) Eos # (Auto) Baso # (Auto) Immature Gran % Nucleated RBC % Immature Gran # Nucleated RBCs # Sodium Potassium Chloride Carbon Dioxide Anion Gap BUN Creatinine GFR Calculation BUN/Creatinine Ratio Glucose POC Glucose 149 H 159 H 174 H Calculated Osmolality Calcium Total Bilirubin AST ALT Alkaline Phosphatase Total Protein Albumin Globulin Albumin/Globulin Ratio DS: Provider Date of admission: 07/17/16 07:55 Primary care physician: Melia Gambino MD Attending physician on admission: Parul Mendoza MD Consults: 07/17/16 08:34 Consult to Physician [CONS] Routine Comment: pancreatitis Consulting Provider: Shailesh Houston Consulting Provider Notified: Yes When should Consulting Provider be notified: Now Consult to Specialist Group: Gastroenterology When should Consulting Provider be notified: Now Person Notified: FRANCESCO Date Notified: 07/17/16 Time Notified: 12:19 07/17/16 15:00 Consult to [facility], Educator [CONS] Routine Reason for Warehouse Stock Clerk: Diabetes Education 07/18/16 11:56 Consult to Physician [CONS] Routine Comment: gallstone pancreatitis. for ercp fri Consulting Provider: Odell Moser When should Consulting Provider be notified: Now 07/19/16 16:03 Consult to Diabetes Center, Educator [CONS] Routine Reason for Warehouse Stock Clerk: Diabetes Education 07/20/16 12:23 Consult to Anesthesiology [CONS] Routine Consulting Provider: Reason for Anesthesiology: Pre-op Clearance 07/23/16 10:26 Consult to Dietitian [CONS] Routine Reason for Dietitian: Other Consult Comment: weight loss counseling Discharging clinician: Matty PACHECO Expected date of discharge: 07/23/16 <Nelly Reaves - Last Filed: 07/24/16 09:11> Hospital Course - Hospital Course Hospital Course: Patient seen and examined. Hospital records reviewed and edited. Patient to follow-up with Dr. francisco nascimento as scheduled. Patient also to see an machine filler shredder in [place] to determine if he has Graves' disease. His morbid obesity with speak against it. But his TSH is significantly low at <.005 with an elevated free T4 of 1.47 and he has significant proptosis. - Time spent with patient Time with patient DS: Greater than 30 minutes (40 min) Diagnosis - Discharge Diagnosis (1) Pancreatitis due to biliary obstruction Status: Acute (2) Choledocholithiasis Status: Acute (3) Elevated LFTs Status: Acute (4) Diabetes Status: Acute (5) Hypertension Status: Acute (6) Graves' disease with exophthalmos Status: Acute (7) Morbid obesity Status: Acute Discharge Plan - Discharge Data Condition at Discharge: Stable Discharge Diet: low fat, low cholesterol Activity: resume usual activities as tolerated Hygiene: no restrictions Weight Bearing at Discharge: full weight bearing Exam - Constitutional General appearance: no acute distress, morbidly obese - Respiratory Respiratory exam: Present: clear to auscultation bilaterally. Absent: rhonchi, wheezes - Cardiovascular Cardiovascular exam: Present: regular rate and rhythm. Absent: systolic murmur - GI/Abdominal GI/Abdominal exam: Present: normal bowel sounds, soft. Absent: tenderness
--- NOTE | 2016-07-23 10:10 | Event Note ---
General Surgery Progress Note Chief complaint This patient is a 26-year-old man with morbid obesity who was admitted with biliary pancreatitis and underwent ERCP with sphincterotomy and sludge removal followed by laparoscopic cholecystectomy with intraoperative cholangiogram on Interval history The patient did well overnight. His pain is well controlled. His KATIANA drain is serosanguineous. He says he is eating well. His labs are unremarkable today Physical exam Afebrile with normal vital signs Abdominal exam is benign with clean incisions and expected postoperative tenderness. KATIANA drain is serosanguineous Labs Reviewed Imaging None Assessment and plan Continue diet as tolerated I would like to wait to the patient is eating a little bit better and follow his drain output 1 more day prior to removing his drain. Continue repeat labs tomorrow Plan for discharge home tomorrow
--- NOTE | 2016-07-23 10:22 | Hospitalist Progress Note ---
Assessment and Plan (1) Pancreatitis due to biliary obstruction Status: Acute Assessment and plan: s/p ercp with sphincterotomy for choledocholithiasis Current Visit: Yes Qualifiers: Chronicity: acute (2) Choledocholithiasis Status: Acute Assessment and plan: Status post lap oh should be okay for discharge in a.m. Current Visit: Yes (3) Elevated LFTs Status: Acute Assessment and plan: Due to choledocholithiasis and pancreatitis, resolving without intervention Current Visit: Yes (4) Diabetes Status: Acute Assessment and plan: Hemoglobin A1c is normal no evidence of diabetes diabetes found Current Visit: Yes (5) Hypertension Status: Acute Assessment and plan: Blood pressure currently good without intervention hold off on any medications at this time. Current Visit: Yes (6) Graves' disease with exophthalmos Status: Acute Assessment and plan: cont ptu Current Visit: Yes (7) Morbid obesity Status: Acute Assessment and plan: needs to lose weight Current Visit: Yes Hospitalist: Subjective Interval history: Patient says he is fine with his weight the way he is. He does not think he needs to lose weight. I warned him about diabetes, obstructive sleep apnea, pulmonary hypertension, heart disease but he is clearly not listening. Dr. Moser will keep him overnight. Patient has proptosis but no one has told him that he has Graves' disease. He needs to see endocrinology in [place]. He is weight his up and down he has no problems with hair loss nothing to suggest hyperthyroidism. But his TSH level is clearly extremely low and free t4 high. Exam - Constitutional Vitals: Period Temp Pulse Resp BP Sys/Chong Pulse Ox Last 24 Hr 96.3 F-98.6 F 73-100 18-20 128-144/73-88 93-99 Exam: Heart Rate-[RRR] Lungs-[CTAB] GI-[+bs soft, obese] Ext-[no edema] Neuro [motor 5/5, alert and oriented times 3 psych [normal mood and flat affect General [no acute distress] Results - Labs CBC & BMP: 07/23/16 04:29 07/23/16 04:29 Lab Results: I have reviewed the past 24 hour labs Specialty Discharge - Follow Up or Referrals Follow up with: Odell Moser MD [Physician] - 2 Weeks
--- NOTE | 2016-07-23 11:50 | Pathology Report from [facility] ---
ACCESSION # : [id number] PATIENT NAME : Danny Casanova ORDERING DR : Odell Moser MD CLINICAL HX: Pancreatitis/cholecystitis POST-OP DX: Same SPECIMEN INFO: Gallbladder GROSS DESCRIPTION: Received in formalin labeled "DANNY CASANOVA" is a focally opened gallbladder measuring 8.6 x 2.7 cm. The serosa is markedly erythematous, shaggy with focal ulceration. The gallbladder wall has a thickness of 0.2 cm. The mucosa is erythematous and focally ulcerated with adherent hemorrhagic material present. Situated near the cystic duct are five faceted stones measuring 2.5 x 1 cm collectively. Facility Maintenance Technician sections are submitted in one cassette. DIAGNOSIS FOR DANNY CASANOVA: GALLBLADDER, CHOLECYSTECTOMY: Acute and chronic cholecystitis; cholelithiasis. SERVICE DATE: 07/22/2016 REPORT DATE: 07/23/2016 PATHOLOGIST: Mark Griffin
[2016-07-23] MEDS: MINERAL OIL/PETROLATUM OPH OINT 3.5 GM TUBE LEFT EYE SCH (20:29)
[2016-07-24 05:42] LABS: Basophils % 0.1 % (0.0-0.8); Eosinophils % 0.2 % (0.00-10.9); Hematocrit 36.4 VOL% (42.0-52.0); Immature Granulocytes % 0.6 %; Immature Granulocytes Absolute 0.07 #; Lymphocytes # 2.9 10*3/uL (1.4-4.0); Lymphocytes % 23.1 % (21.2-54.2); Mean Corpuscular Hemoglobin 29 PG (27-34); Mean Corpuscular Volume 87.7 FL (87-102); Mean Platelet Volume 11.1 FL (9.6-12.0); Monocytes # 1.1 10*3/uL (0.11-0.8); Monocytes % 8.3 % (1.7-12.7); Neutrophils # 8.6 10*3/uL (1.4-7.4); Neutrophils % 67.7 % (38.7-73.9); Platelet Count 280 T/CUMM (130-400); Red Blood Count 4.15 MC/CUMM (3.8-5.5); Red Cell Distribution Width 12.4 % (9.3-17.3); White Blood Count 12.7 T/CUMM (4-12)
[2016-07-24 06:17] LABS: Alanine Aminotransferase 53 U/L (16-61); Albumin 2.3 G/DL (3.4-5.0); Alkaline Phosphatase 69 U/L (45-117); Aspartate Amino Transferase 46 U/L (0-37); Bilirubin,Total < 0.39 MG/DL (0.2-1.0); Blood Urea Nitrogen 13 MG/DL (7-18); Calcium 7.8 MG/DL (8.5-10.1); Glucose 107 MG/DL (74-106); Potassium 4.2 MMOL/L (3.5-5.1); Sodium 143 MMOL/L (136-145); Total Protein 5.4 G/DL (6.4-8.3)
[2016-07-24] MEDS: LACTATED RINGERS 1,000 ML IV SCH (06:33)
--- NOTE | 2016-07-24 08:03 | Event Note ---
General Surgery Progress Note Chief complaint This patient is a 26-year-old man with morbid obesity who was admitted with biliary pancreatitis and underwent ERCP with sphincterotomy and sludge removal followed by laparoscopic cholecystectomy with intraoperative cholangiogram on Interval history No events overnight. Patient wants to go home today. KATIANA drain is serosanguineous. He is tolerating his diet well. Physical exam Afebrile with normal vital signs Abdominal exam is benign with clean incisions and expected postoperative tenderness. KATIANA drain is serosanguineous Labs Reviewed Imaging None Assessment and plan Remove KATIANA Discharge home Follow-up in clinic in 2 weeks
[2016-07-24] MEDS: PROPYLTHIOURACIL 50 MG TABLET PO SCH (09:11)
[2016-07-24] MEDS: ATORVASTATIN 20 MG TABLET PO SCH (09:11)
[2016-07-24] MEDS: INSULIN LISPRO 100 UNIT/ML SUBCUT SCH (09:13)
[2016-07-24] MEDS: PANTOPRAZOLE 40 MG VIAL IV SCH (09:13)
[2016-07-24 11:07] VITALS: BP 136/72
== END 2016-07-24 11:30 | disposition home or self-care (01) | DRG 417 ==
LOC: EDBD → EDUNIT# → EDSEX → N.ED 07:11 → N.EDINP 07:55 → SUATTDRO 07:55 → N.EDINP 10:58 → N.4E 11:08
PROVIDERS: ADMIT Internal Medicine; ATTEND Internal Medicine
PROC: ERCPWSP (ICD-10-PCS; 2016-07-19 09:35)
PROC: LAPCHOL (2016-07-22 07:00)